=== PATIENT | female | born 1955 | race Caucasian/White ===

== ENCOUNTER 2023-07-20 12:08 | Outpatient (REF) | payer MEDICARE, MEDICAID, SELFPAY ==
--- NOTE | ~2023-07-20 | XR_ITS ---
EXAMINATION: XR CERVICAL SPINE CLINICAL INFORMATION: Cervical radiculopathy. COMPARISON: Radiographs dated 05/10/2016. TECHNIQUE: Frontal, odontoid, bilateral oblique and lateral views of the cervical spine were obtained. FINDINGS: Vertebral body heights are normal. At C3-C4, there is a 2 mm anterolisthesis. At C4-C5, there is marked disc space narrowing, with anterior spondylosis. There is well-maintained alignment status-post C5-C6 anterior fusion and discectomy, with intact anterior fixator plate, fixator screws and disc spacer. No hardware loosening is seen. At C6-C7, there is marked disc space narrowing, with anterior spondylosis. The posterior elements are intact. There is multi-level lumbar facet arthropathy. The dens is intact. No prevertebral soft tissue swelling or gas is seen. XR/XR cervical spine 4V IMPRESSION: 1. At C4-C5 and C6-C7, there is marked degenerative disc disease, with anterior spondylosis. 2. There is well-maintained alignment status-post C5-C6 anterior fusion and discectomy. No hardware failure or loosening is seen. 3. There is multi-level cervical spondylosis.
== END 2023-07-20 12:09 | disposition home or self-care (01) ==
LOC: HO.XRAY 12:08
PROVIDERS: Visit Provider Psychiatry & Neurology Neurology
DX: M54.12 Radiculopathy, cervical region (principal); M50.20 Other cervical disc displacement, unspecified cervical region
CPT/HCPCS: 72050